=== PATIENT | female | born 1950 | race Caucasian/White ===

== ENCOUNTER 2016-06-02 10:14 | Inpatient (IN) | payer OTHER, MEDICARE ==
[~2016-06-02] VITALS: Ht 180.3 cm; Wt 125.4 kg
[~2016-06-02 10:14] MED LIST: CENTANY30 GM TP; CLARINEX-D 121 EACH PO; CLARITIN-D 21 TABLET PO; CRESTOR5 MG PO; FINACEA 15% GEL50 GM TP; GABAPENTIN100 MG PO; HYDROCHLOROTH12.5 M2 PO; IRON325 M1 PO; LIDEX 0.05% CRE60 GM TP; MOBIC15 MG PO; PERCOCET 5/31 TABLET PO; PROTONIX40 MG PO; SYNTHROID50 MCG PO; TAMIFLU75 MG PO; ULTRAM50 MG PO; VALIUM5 MG PO; VITAMIN D2000 UNIT PO
[2016-06-02 11:59] VITALS: BP 140/75
[2016-06-02 18:32] VITALS: BP 102/60
[2016-06-02 19:30] VITALS: BP 115/63
[2016-06-02 23:48] VITALS: BP 107/57
[2016-06-03 03:36] VITALS: BP 129/67
[2016-06-03 05:45] LABS: HEMATOCRIT 41.4 % (36.0-46.0); MCV 93.7 FL (83-99)
[2016-06-03 06:26] LABS: ANION GAP 8 MEQ/L (2-14); CHLORIDE 107 MEQ/L (99-109); GFR ESTIMATE (CALCULATED) 59 mL/min/; GLUCOSE 96 mg/dL (70-99); POTASSIUM 3.8 MEQ/L (3.7-5.4); SAMPLE HEMOLYSIS CHECK 0; SAMPLE ICTERIC CHECK 0; SAMPLE LIPEMIA CHECK 0; SODIUM 143 MEQ/L (136-147); UREA NITROGEN (BUN) 28 mg/dL (9-23)
[2016-06-03 08:35] VITALS: BP 100/59
[2016-06-03 11:40] VITALS: BP 117/75
[2016-06-03 16:35] VITALS: BP 117/58
[2016-06-03 20:10] VITALS: BP 131/70
[2016-06-03 23:39] VITALS: BP 121/62
[2016-06-04 05:52] LABS: MCV 92.3 FL (83-99)
[2016-06-04 08:17] VITALS: BP 135/60
[2016-06-04 16:36] VITALS: BP 111/59
[2016-06-04 23:44] VITALS: BP 141/65
[2016-06-05] MEDS ORDERED: CELECOXIB200 MG PO (07:42)
[2016-06-05] MEDS ORDERED: OXYCODONE HCL5 MG PO (07:42)
[2016-06-05] MEDS ORDERED: BENADRYL25 MG PO (07:42)
[2016-06-05] MEDS ORDERED: XARELTO10 MG PO (07:42)
[2016-06-05 08:00] VITALS: BP 118/64
== END 2016-06-05 13:24 | DRG 470 ==
LOC: 2SOUTH 10:14 → 3EAST 11:23 → 2SOUTH 11:23 → 3EAST 18:04
PROVIDERS: Orthopaedic Surgery; Physician Assistant
PROC: 0SRD0J9 Replacement of Left Knee Joint with Synthetic Substitute, Cemented, Open Approach (ICD-10-PCS; principal; 2016-06-02)
DX: M17.12 Unilateral primary osteoarthritis, left knee (principal); I10 Essential (primary) hypertension; J45.909 Unspecified asthma, uncomplicated
CPT/HCPCS: 71010; 80048; 85014; 85018; C1713; J0131; J0690; J1170; J1885; J2250; J2795; J7050; J7120; L1820